=== PATIENT | male | born 1970 | race American Indian/Alaskan Native ===

== ENCOUNTER 2020-07-17 11:33 | Emergency (ER) | payer OTHER ==
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
[2020-07-17] MEDS ORDERED: IBUPROFEN 800 MG TAB PO ONE (18:32)
[2020-07-17] MEDS ORDERED: oxyCODONE /ACETAMINOPHEN 5-325MG TAB PO ONE (18:32)
[2020-07-17 18:47] VITALS: BP 120/83
== END 2020-07-17 18:58 | disposition home or self-care (01) ==
LOC: ED 11:33
DX: S50.01XA Contusion of right elbow, initial encounter (principal); M79.622 Pain in left upper arm; M25.561 Pain in right knee; F31.9 Bipolar disorder, unspecified; F41.9 Anxiety disorder, unspecified; F17.200 Nicotine dependence, unspecified, uncomplicated; Z98.890 Other specified postprocedural states; V49.59XA Passenger injured in collision with other motor vehicles in traffic accident, initial encounter; Y93.89 Activity, other specified; Y92.410 Unspecified street and highway as the place of occurrence of the external cause; Y99.8 Other external cause status